=== PATIENT | male | born 1975 | race Caucasian/White ===

== ENCOUNTER 2017-09-22 08:30 | Outpatient (RCR) | payer BC ==
[2013-12-08 12:25] VITALS: BP 141/87
[~2017-09-22 08:30] MED LIST: ORA; Oracea
== END 2017-09-22 09:00 | disposition home or self-care (01) ==
LOC: PT 08:30
DX: M54.41 Lumbago with sciatica, right side (principal); G89.29 Other chronic pain

== ENCOUNTER 2022-11-25 16:13 | Emergency (ER) | payer BC ==
[~2022-11-25] VITALS: Ht 190.5 cm; Wt 106.8 kg
[2022-11-25] MEDS ORDERED: METOPROLOL SUCC50 M1 PO (16:32)
[2022-11-25] MEDS ORDERED: ATORVASTATIN CA20 MG PO (16:32)
[2022-11-25 16:51] LABS: HEMATOCRIT 39.2 % (42.0-52.0); HEMOGLOBIN 13.2 g/dL (13.5-18.0); MEAN CELL VOLUME 92 fl (78-100); MEAN CORPUSCULAR HEMOGLOBIN 31 pg (27-31); MEAN CORPUSCULAR HGB CONC 34 g/dL (33-37); MEAN PLATELET VOLUME 9.7 fl (7.4-10.4); PLATELET COUNT 200 K/mm3 (130-400); RED BLOOD COUNT 4.26 M/mm3 (4.20-5.60); RED CELL DISTRIBUTION WIDTH 13.1 % (11.5-14.5); WHITE BLOOD COUNT 7.2 K/mm3 (4.8-10.8)
[2022-11-25 16:58] LABS: ALBUMIN 4.6 g/dL (3.5-5.0); POTASSIUM 3.8 mmol/L (3.5-5.1)
[2022-11-25 17:00] LABS: CALCIUM 9.4 mg/dL (8.3-10.5)
[2022-11-25 17:01] LABS: TOTAL PROTEIN 7.3 g/dL (6.4-8.3)
[2022-11-25 17:03] LABS: TOTAL BILIRUBIN 0.7 mg/dL (0.2-1.2)
[2022-11-25 17:17] LABS: LYMPHOCYTE 6 % (20-51); MONOCYTE 8 % (3-10); NEUTROPHILS 86 % (42-75)
[2022-11-25 17:59] LABS: URINE WBC 0 /hpf (0-3)
[2022-11-25 18:25] LABS: URINE APPEARANCE CLEAR; URINE BILIRUBIN NEGATIVE (NEGATIVE); URINE BLOOD NEGATIVE (NEGATIVE); URINE COLOR YELLOW; URINE GLUCOSE NEGATIVE (NEGATIVE); URINE KETONE NEGATIVE (NEGATIVE); URINE LEUKOCYTE ESTERASE NEGATIVE (NEGATIVE); URINE MUCUS PRESENT (NOT PRESENT); URINE NITRATE NEGATIVE (NEGATIVE); URINE PROTEIN(semi-quant) TRACE (NEGATIVE); URINE UROBILINOGEN NORMAL (NORMAL)
[2022-11-25] MEDS ORDERED: MORGIDOX 1X100100 MG PO (19:43)
[2022-11-25 19:54] VITALS: BP 129/79
== END 2022-11-25 19:57 | disposition home or self-care (01) ==
LOC: ED 16:13
PROVIDERS: Nurse Practitioner
DX: J11.00 Influenza due to unidentified influenza virus with unspecified type of pneumonia (principal); R53.1 Weakness; Z88.0 Allergy status to penicillin; Z20.822 Contact with and (suspected) exposure to COVID-19
CPT/HCPCS: J7030